=== PATIENT | male | born 1945 | race Caucasian/White ===

== ENCOUNTER 2024-02-21 22:30 | Emergency (ER) | payer MEDICARE, OTHER ==
[2024-02-21] MEDS ORDERED: Boostrix 0.5 ML (Tdap) VIAL (>/=7 yrs of age) ONE (22:59)
== END 2024-02-21 23:12 | disposition home or self-care (01) ==
LOC: BURERS 22:30
DX: S01.81XA Laceration without foreign body of other part of head, initial encounter (principal); S80.212A Abrasion, left knee, initial encounter; S50.312A Abrasion of left elbow, initial encounter; Z23 Encounter for immunization; W01.10XA Fall on same level from slipping, tripping and stumbling with subsequent striking against unspecified object, initial encounter
CPT/HCPCS: 12013; 70450; 90471; 90715

== ENCOUNTER 2025-02-26 15:48 | Emergency (ER) | payer MEDICARE, OTHER ==
[2025-02-26] MEDS ORDERED: Lidocaine/Transparent Dressing 1 EACH KIT ONE (16:28)
== END 2025-02-26 17:17 | disposition home or self-care (01) ==
LOC: BURERS 15:48
DX: S01.81XA Laceration without foreign body of other part of head, initial encounter (principal); E03.9 Hypothyroidism, unspecified; K21.9 Gastro-esophageal reflux disease without esophagitis; W26.8XXA Contact with other sharp object(s), not elsewhere classified, initial encounter; Z79.899 Other long term (current) drug therapy
CPT/HCPCS: 12013; 99283